=== PATIENT | female | born 2000 | race Caucasian/White ===

== ENCOUNTER 2020-03-23 02:38 | Emergency (ER) | payer SELFPAY ==
[2020-03-23 03:16] LABS: Bilirubin Negative (Negative); Blood, Urine Small (Negative); Clarity Clear (Clear); Glucose, Urine (Dipstick) Negative (Negative); Leukocyte Negative (Negative); Nitrite Negative (Negative); Protein, Urine (Dipstick) Negative (Neg-Trace); Urobilinogen 0.2 mg/dL (Less than 2)
[2020-03-23 03:27] LABS: Bacteria/HPF 1+ HPF (None Seen); RBC/HPF 0-3 HPF (0-3); Squamous Epithelial 0-3 HPF (0-3)
[2020-03-23 03:29] LABS: Pregnancy Test - Urine (BHCG) Negative (Negative); Pregu Control Background? CLEAR/WHITE (CLR/WHITE); Pregu Control Bar Appear? YES (CONTROL BAR); Specific Gravity 1.005 (1.002-1.036)
[2020-03-23] MEDS ORDERED: Lidocaine 1% PF 5 ML VIAL ONE ×2 (03:48)
[2020-03-23] MEDS ORDERED: Bacitracin 1 PK ONE (04:44)
[2020-03-23] MEDS ORDERED: Sulfameth/Trimethoprim DS 800-160mg TAB ONE (04:44)
--- NOTE | 2020-03-23 12:07 | RAD ---
RIGHT HIP THREE VIEWS: 03/23/2020 FINDINGS: No fracture, dislocation or acute bony change is seen. The joint space is normal in width and the art icular surfaces are smooth. IMPRESSION: No acute findings. POS: HOME
--- NOTE | 2020-03-23 12:09 | RAD ---
LEFT CLAVICLE TWO VIEWS: 03/23/2020 FINDINGS: No fracture is seen. The AC joint is normal in width. The adjacent left shoulder appears normal. The visible upper left ribs appear intact. There is no pneumothorax. IMPRESSION: No acute findings. POS: HOME
--- NOTE | 2020-03-23 12:09 | RAD ---
RIGHT FOREARM TWO VIEWS: 03/23/2020 FINDINGS: The radius and ulna appear intact. No fractures are seen. No joint effusion is indicated at the elbow . IMPRESSION: No acute findings. POS: HOME
--- NOTE | 2020-03-23 12:10 | RAD ---
RIGHT HAND THREE VIEWS: 03/23/2020 FINDINGS: No fracture is dislocation is seen. The bones and joints appear normal. The carpal relations are norm al. IMPRESSION: No acute finding. POS: HOME
--- NOTE | 2020-03-23 12:12 | RAD ---
RIGHT SHOULDER THREE VIEWS: 03/23/2020 FINDINGS: No fracture, dislocation or AC joint widening is seen. The scapula and visible adjacent ribs all appe ar intact. IMPRESSION: No acute findings. POS: HOME
== END 2020-03-23 05:12 | disposition home or self-care (01) ==
LOC: BURERS 02:38
DX: S11.91XA Laceration without foreign body of unspecified part of neck, initial encounter (principal); S70.01XA Contusion of right hip, initial encounter; S40.012A Contusion of left shoulder, initial encounter; S50.11XA Contusion of right forearm, initial encounter; S60.221A Contusion of right hand, initial encounter; S40.011A Contusion of right shoulder, initial encounter; S70.11XA Contusion of right thigh, initial encounter; V86.59XA Driver of other special all-terrain or other off-road motor vehicle injured in nontraffic accident, initial encounter
CPT/HCPCS: 12042; 81003; 81015; 81025; J2001